=== PATIENT | male | born 1955 | race Caucasian/White ===

== ENCOUNTER 2025-01-25 11:39 | Outpatient (CLI) | payer OTHER, MEDICARE ==
[2025-01-25] VITALS (21 sets, daily range): BP systolic 115–145; BP diastolic 58–89; PULSE 63–82
== END 2025-01-25 23:59 | disposition home or self-care (01) ==
LOC: CARD DIAG 11:39
PROVIDERS: ATTEND Internal Medicine Interventional Cardiology
DX: R55 Syncope and collapse (principal)
CPT/HCPCS: 93660